=== PATIENT | male | born 1955 ===

== ENCOUNTER 2022-04-09 23:14 | Emergency (ER) | payer BC, SELFPAY ==
--- NOTE | ~2022-04-09 | CT_ITS ---
CT Abdomen and Pelvis with contrast. History: Abdominal pain, Crohn's disease. Spiral CT of the abdomen and pelvis was performed after the administration of intravenous contrast. 1 00 cc of Omnipaque 350 was administered intravenously without complication. Dose reduction technique was used on this scan by utilizing automated exposure control and iterative reconstruction technique. The dose-length product (DLP) was 542.21 mGy-cm. COMPARISON: 12/15/2012 Findings: Scans through the lung bases demonstrate mild atelectatic change. Stable left hepatic lobe cysts noted. The spleen, pancreas, gallbladder, adrenals and kidneys are wit hin normal limits. No evidence of aortic aneurysm. No lymphadenopathy is seen. There is extensive wall thickening of the proximal to mid sigmoid colon with pericolonic inflammatory stranding. Findings suggest diverticulitis or other infectious/inflammatory colitis. No abscess or f ree air. Right inguinal hernia contains several loops of small bowel. No bowel obstruction is identif ied. Images through the pelvis were performed. Urinary bladder unremarkable. Prostate gland is enlarged. N o ascites is seen. Impression: Extensive wall thickening of the proximal to mid sigmoid colon with adjacent inflammatory stranding. Findings are consistent with diverticulitis or other infectious/inflammatory colitis. Consider follow -up colonoscopy after treatment of the apparent acute process to exclude underlying neoplastic lesion . Right inguinal hernia containing loops of small bowel. No bowel obstruction. Reviewed, dictated and finalized at [facility]. [employer] Impression: Extensive wall thickening of the proximal to mid sigmoid colon with adjacent in flammatory stranding. Findings are consistent with diverticulitis or other infe ctious/inflammatory colitis. Consider follow-up colonoscopy after treatment of the apparent acute process to exclude underlying neoplastic lesion. Right inguinal hernia containing loops of small bowel. No bowel obstruction.
[2022-04-09 23:20] VITALS: BP 181/78; PULSE 60; RESP 18; TEMP 36.8; O2SAT 95
[2022-04-10] VITALS (21 sets, daily range): BP systolic 126–182; BP diastolic 75–96; PULSE 72–92; RESP 16; O2SAT 95–100
[2022-04-10 01:44] LABS: Basophils Percent Auto 0.5 % (0.2-1.2); Eosinophils Percent Auto 0.3 % (0-4.4); Hematocrit 38.3 % (42.0-52.0); Hemoglobin 12.7 g/dL (14.0-18.0); Immature Granulocyte Absolute 0.08 K/mm3 (0.00-0.031); Lymphocytes Absolute Auto 0.54 K/mm3 (0.9-3.2); Lymphocytes Percent Auto 6.8 % (18.3-44.2); Mean Corpuscular HGB Conc 33.2 g/dl (32-36); Mean Corpuscular Hemoglobin 28.9 pg (26-34); Monocytes Absolute Auto 0.4 K/mm3 (0.1-0.6); Monocytes Percent Auto 4.6 % (2.6-8.5); Neutrophils Percent Auto 86.8 % (45.5-73.1); Platelet Count Result 279 k/mm3 (150-375); Red Cell Distribution Width 13.2 % (11.5-14.5)
[2022-04-10 01:51] LABS: Mucus Urine Rare /lpf; WBC Urine 0-3 /hpf
[2022-04-10 01:51] LABS: Alanine Aminotransferase 14 U/L (6-50); Albumin Level 4.2 g/dL (3.5-5.1); Alkaline Phosphatase 72 U/L (38-126); Anion Gap 8 mmol/L (8-16); Aspartate Amino Transferase 23 U/L (17-59); Bilirubin,Total 0.6 mg/dL (0.2-1.3); Blood Urea Nitrogen 11 mg/dL (9-20); Calcium 8.3 mg/dL (8.4-10.2); Carbon Dioxide 27 mmol/L (22-30); Chloride 102 mmol/L (98-107); Estimated CRCL calculation 98 ml/min; Estimated Glomerular Filt Rate > 60; Glucose 131 mg/dL (65-110); Lipase 32 U/L (23-300); Potassium 4.3 mmol/L (3.4-5.0); Sodium 137 mmol/L (137-145)
[2022-04-10 02:05] LABS: Appearance Urine Clear (Clear); Bilirubin Urine Negative (Negative); Blood Urine Trace-intact (Negative); Color Urine Yellow (Yellow); Glucose Urine UA Negative (Negative); Ketones Urine 2+ mg/dL (Negative); Leukocyte Esterase Ur Negative LEU/UL (Negative); Nitrate Urine Negative (Negative); Protein Urine Trace mg/dL (Negative); Specific Grav Ur 1.015 (1.001-1.035); Urobilinogen Urine 0.2 mg/dL (<2.0)
[2022-04-10 02:10] LABS: Add Urine Microscopic? YES
[2022-04-10 02:18] LABS: Influenza A QL RT-PCR Negative (Negative); Influenza B QL RT-PCR Negative (Negative); SARS-CoV-2 RNA PCR Negative
[2022-04-10] MEDS: SODIUM CHLORIDE 0.9% IV 1,000 ML 999 ML IV CONT (02:31)
[2022-04-10] MEDS: ONDANSETRON INJ 4 MG/2 ML VIAL IV PUSH (02:31)
--- NOTE | 2022-04-10 03:07 | ED.GENADULT ---
HPI - General Adult General Chief complaint: Abdominal Pain Stated complaint: N/V, abd pain Time Seen by Provider: 04/10/22 02:05 History of Present Illness HPI narrative: Patient 66-year-old gentleman who presents the emergency department with chief complaint of abdominal pain. Patient reports he has history of Crohn's disease and has been having abdominal discomfort throughout his abdomen and has had multiple loose stools. Patient states he has had no fever. Patient reports that he has had no prior abdominal surgeries Related Data Home Medications Medication Instructions Recorded Confirmed albuterol sulfate 90 mcg/actuation inhalation 01/15/19 aerosol inhaler fluticasone 250 mcg-salmeterol 50 inhalation 01/15/19 mcg/dose blistr powdr for inhalation (Advair Diskus) levofloxacin 500 mg tablet 500 mg PO DAILY 01/15/19 01/15/19 (Levaquin) Allergies Allergy/AdvReac Type Severity Reaction Status Date / Time ciprofloxacin Allergy Unknown Skin Verified 04/10/22 01:27 Reaction doxycycline Allergy Unknown Rash Verified 04/10/22 01:27 erythromycin base Allergy Unknown Rash Verified 04/10/22 01:27 levofloxacin Allergy Unknown Skin Verified 04/10/22 01:27 Reaction metaxalone Allergy Unknown Skin Verified 04/10/22 01:27 Reaction montelukast Allergy Unknown suicidal Verified 04/10/22 01:27 thoughts Penicillins Allergy Unknown Skin Verified 04/10/22 01:27 Reaction Sulfa (Sulfonamide Allergy Unknown Skin Verified 04/10/22 01:27 Antibiotics) Reaction sulfamethizole Allergy Unknown Rash Verified 04/10/22 01:27 Tetracyclines Allergy Unknown Skin Verified 04/10/22 01:27 Reaction trazodone Allergy Unknown Rash Verified 01/15/19 13:00 metronidazole [From Flagyl] Allergy Rash Verified 01/15/19 13:00 tetracycline Allergy Rash Verified 01/15/19 13:00 Review of Systems Review of Systems: A 10 system review of systems was completed on the patient and is negative except for what is stated in the HPI. Nursing and ancillary documentation was reviewed. Exam Narrative: GENERAL: Well-appearing, well-nourished, and in no acute distress. HEAD: Normocephalic, atraumatic. EYES: PERRLA and EOMI. ENT: Nares clear, no rhinorrhea or epistaxis. Mucous membranes moist. NECK: Supple. CHEST: Clear to auscultation. No respiratory distress. HEART: Regular rate and rhythm. No murmur heard. Normal peripheral pulses. ABDOMEN: Soft, diffuse tenderness to palpation, nondistended, normal active bowel sounds. EXTREMITIES: Normal range of motion. No edema. SKIN: Warm, dry, no rash. NEURO: No focal deficits. Alert and oriented x3. PSYCH: Normal mood and affect. Course Vital Signs Vital signs: Vital Signs Temperature 36.8 C 04/09/22 23:20 Pulse Rate 60 04/09/22 23:20 Respiratory Rate 18 04/09/22 23:20 Blood Pressure 181/78 H 04/09/22 23:20 Pulse Oximetry 95 04/09/22 23:20 Oxygen Delivery Room Air 04/09/22 23:20 Temperature 36.8 C 04/09/22 23:20 Pulse Rate 72 04/10/22 06:40 Respiratory Rate 16 04/10/22 06:40 Blood Pressure 126/75 04/10/22 06:40 Pulse Oximetry 95 04/10/22 06:40 Oxygen Delivery Room Air 04/09/22 23:20 Medical Decision Making [facility] Narrative Medical decision making narrative: Patient has history of underlying inflammatory bowel disease is currently on an immunologic. Patient has multiple drug allergies. Patient's white count is 8.0 electrolytes are within normal limits with exception of glucose of 131 urinalysis showed no evidence of UTI COVID and flu were negative. CT scan showed evidence of acute colitis Given the patient's history of inflammatory bowel disorder and also multiple allergies with antibiotics plan will be most likely to start the patient on p.o. prednisone and the patient would follow-up with his primary commercial counsel Vital Signs Vital Signs: Vital Signs Temperature 36.8 C 04/09/22 23:20 Pulse Rate 60 04/09/
[2022-04-10] MEDS: PROCHLORPERAZINE EDISYLATE 10 MG/2 ML VIAL IV PUSH (05:17)
== END 2022-04-10 07:14 | disposition home or self-care (01) ==
PROVIDERS: Emergency Provider Emergency Medicine
DX: K52.9 Noninfective gastroenteritis and colitis, unspecified (principal); Z20.822 Contact with and (suspected) exposure to COVID-19; K50.90 Crohn's disease, unspecified, without complications
CPT/HCPCS: 36415; 74177; 80053; 81001; 83690; 85025; 87636; 96361; 96374; 96375; 99284; J0780; J2405; J7030; Q9967